=== PATIENT | female | born 1955 | race Caucasian/White ===

== ENCOUNTER 2017-07-17 17:00 | Emergency (ER) | payer OTHER ==
[~2017-07-17] VITALS: Ht 167.6 cm; Wt 61.4 kg
[2017-07-17 17:06] VITALS: BP 148/88; PULSE 79; RESP 15; O2SAT 100
--- NOTE | 2017-07-17 20:07 | ED.REPORT ---
HPI-Extremity Problem Lower Date of Service Jul 17, 2017 ED Provider: Damián Lieberman MD Patient is a 62 year old female with a history of a right hip replacement who presents to the ED complaining of worsening left hip pain. Associated symptoms include difficulty bearing weight. The patient reports that she is supposed to be having a hip replacement in August but has been experiencing pain for quiet some time. She states that she tripped and fell earlier today and the pain has been severe since then. The patient states the pain is normally improved after taking 30mg Hydrocodone but she took one this morning without relief. Nursing Notes Stated Complaint: LEFT HIP PAIN Chief Complaint: Extremity Trauma Nursing Notes Reviewed: Yes Allergies: Coded Allergies: NSAIDS (Non-Steroidal Anti-Inflamma (Verified Allergy, Intermediate, hives and eyes swell up, 07/17/17) aspirin (Verified Allergy, Intermediate, eye swelling and hives, 07/17/17) Scheduled PRN Oxycodone (Roxicodone) 30 Mg Tablet 30 MG PO Q6H PRN PRN For Pain General Time Seen by MD: 20:07 Chief Complaint Hip injury left Hx Obtained From: Patient Arrived By: Walk-in Onset Occurred: 2 days ago Symptom Duration: Since onset Caused by: Fall on ground Location: : Hip left Quality: Painful Severity: Current: Severe Associated with: Reports: Unable to bear weight, Unable to walk Exacerbated by: Movement Similar Sx Previous: Yes Past Medical History Past Medical History Notes: patient states "lupus like symptoms" Past Surgical History shoulder times 2 abd surgery for 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 Respiratory: Denies: Non-productive cough, Shortness of breath Physical Exam Initial Vital Signs Vital Signs (First) Date Time Temp Pulse Resp B/P Pulse Ox O2 Delivery O2 Flow Rate FiO2 07/17/17 17:06 37 79 15 148/88 100 Initial VS: Reviewed Lower Extremity / Pelvis / MS: Neurologic intact, Vascular intact Left Hip: Positive: ROM reduced... Ankle / Foot: Atraumatic, Inspection NL General/Constitutional: Awake, Alert Respiratory / Chest: Atraumatic, Breath sounds NL, Breath sounds = bilat, No respiratory distress Cardiovascular: Heart rate NL, Regular rhythm, Heart sounds NL Skin: Atraumatic, Color NL, No rash, Warm, Dry Neurologic: Oriented X3, Speech NL, No motor deficits, No sensory deficits Head / Eyes: Atraumatic, Normocephalic, PERRL, EOMI Psychiatric: Affect NL, Mood NL Interpretation & Diagnostics X-Ray Interpretation Xray Interpretation: IMPRESSION: Severe osteoarthritic changes are present. No acute bony abnormality is identified. Dictated by: Vernon Layne M.D. on 07/17/2017 at 21:26 this report corresponds to the emergency room physicians ER dictated note. Approved by: Vernon Layne M.D. on 07/17/2017 at 21:28 X-Ray Ordered: Hip left Interpretation / Wet Read by: Interpret - Radiologist Interpretation: No fracture/dislocation Re-Eval/Medical Decision Re-Evaluation/Progress : Time of Eval: 21:24 Re-Evaluation/Progress Note: Discussed X-ray results and plan for discharge. Patient understands and agrees to plan. All quesitons were addressed Counseled Regarding: Diagnosis, Lab results, Need for follow-up, When/why to return to ED Discharge & Departure Impression: Primary Impression: Arthritis of left hip Disposition: Home Discharge Condition All VS Reviewed: Yes Condition: Stable Patient Instructions: Hip Pain (ED) Additional Instructions: Your X-ray was normal and reassuring. There was no evidence of a fracture or dislocation. I have prescribed oxycodone 30 mg tablets #6 dispensed. I would not be willing to refill a prescription of this from the emergency department. Pain medication prescriptions must come from Dr. Mckeon for another outpatient provider. Follow up with your ortho surgeon regarding your hip surgery. Return to the emergency department if you develop any new or concerning symptoms. Referrals: Latesha Mckeon MD Attestation Portions of this note were transcribed by Jayne Bran. I, Dr. Lieberman personally performed the history, physical exam and medical decision-making; I reviewed and confirmed the accuracy of the information in the transcribed note. Signed by: Farzana Lebron, 07/17/17 copies to: Latesha Mckeon MD, Kirk H MD Jul 17, 2017 20:07 Brittany Bran Jul 17, 2017 20:17
--- NOTE | 2017-07-17 21:29 | DRSVH ---
PROCEDURE: X-RAY PELVIS W/LAT HIP (LT) ([id number]) INDICATIONS: trauma TECHNIQUE: AP pelvis with lateral view(left hip(s). COMPARISON: [facility] [place], [place], XR PELVIS W LATERAL HIP LT, 05/2017, 10:35. FINDINGS: Bones: No fractures or dislocations. Pelvic ring appears intact. N in the weight-bearing portion. There prominent marginal osteophytes at the femoral head neck junction. There is some increased scler osis of the weight-bearing portion of the femoral head and acetabulum. There is buttressing of the fe moral neck medially. Soft tissues: The visualized bowel gas pattern is normal. No suspicious soft tissue calcifications. IMPRESSION: Severe osteoarthritic changes are present. No acute bony abnormality is identified. Dictated by: Vernon Layne M.D. on 07/17/2017 at 21:26 this report corresponds to the emergency ro om physicians ER dictated note. Approved by: Vernon Layne M.D. on 07/17/2017 at 21:28
[2017-07-17] MEDS ORDERED: OXYC30TA48 PO (21:39)
[2017-07-17] MEDS ORDERED: oxyCODONE ER 80 mg ER12 Tablet PO ONE (21:40)
[2017-07-17] MEDS ORDERED: oxyCODONE ER 40 mg ER12 Tablet PO ONE (22:20)
[2017-07-17 22:43] VITALS: BP 122/74; PULSE 84; RESP 14; O2SAT 96
== END 2017-07-17 22:15 | disposition home or self-care (01) ==
LOC: SED 17:00
DX: M16.12 Unilateral primary osteoarthritis, left hip (principal); Z87.891 Personal history of nicotine dependence; Z90.710 Acquired absence of both cervix and uterus; Z88.6 Allergy status to analgesic agent
CPT/HCPCS: 73501; 96372; 99284; J2270